=== PATIENT | male | born 1995 | race Two or more races ===

== ENCOUNTER 2019-05-10 23:11 | Emergency (ER) | payer SELFPAY ==
[~2019-05-10] VITALS: Ht 172.7 cm; Wt 83.9 kg
[2019-05-10 23:28] VITALS: BP 140/64
== END 2019-05-10 23:30 | disposition left against medical advice (07) ==
LOC: ER 23:15
DX: R11.2 Nausea with vomiting, unspecified (principal); R07.0 Pain in throat; Z53.21 Procedure and treatment not carried out due to patient leaving prior to being seen by health care provider